=== PATIENT | female | born 1995 | race Caucasian/White ===

== ENCOUNTER 2016-05-30 18:26 | Observation (INO) | payer BC ==
[2016-05-30 18:37] VITALS: BMI 37.8
[2016-05-30 19:48] LABS: BASOPHIL 1.3 % (0-2.0); MCH 28.6 pg (25.7-33.7); MCHC 34.3 g/dl (32.0-36.0); MEAN CELL VOLUME 83.4 fl (80-96); MEAN PLT VOLUME 6.7 fl (7.5-11.1); NEUTROPHILS 60.5 % (42.8-82.8); PLATELET COUNT 251 K/MM3 (134-434); RDW 13.6 % (11.6-15.6); WHITE BLOOD COUNT 8.9 K/mm3 (4.0-10.0)
[2016-05-30] MEDS ORDERED: SODIUM CHLORIDE 1,000 ML IV STA (19:58)
[2016-05-30 20:01] LABS: INR 1.05 (0.82-1.09); PROTHROMBIN TIME (PATIENT) 11.6 SEC (9.98-11.88)
[2016-05-30 20:04] LABS: ACTIVATED PTT 32.2 SECONDS (26.9-34.4)
--- NOTE | 2016-05-30 20:05 | PDOC ---
History of Present Illness - General History Source: Patient Exam Limitations: No Limitations - History of Present Illness Initial Comments: 05/30/16 20:14 The patient is a 20 year old female with past medical history of asthma and severe depression who presents to the ED with complaints of chest pain which began around late afternoon today. The patient states that is unsure how the onset began, but qualifies the pain as a constant chest tightness.It is non- radiating. It is accompanied by a feeling of dizziness/weakness. As per mother , patient is on clozapine and has decreased her dosage within the past month. She is on cogentin and diltiazem and receives ECT as well. The mother also reports that the patient has been doing some physical activity because they are moving to a new home. The patient was advised to come to the ED by her steam distribution supervisor. [employer] Weapon System Operator: Dr. Isis Del Cid <Jenny Avina - Last Filed: 05/30/16 20:14> - General History Source: Patient Exam Limitations: No Limitations <Mark Akhtar - Last Filed: 05/30/16 21:18> - General Chief Complaint: Chest Pain Stated Complaint: CHEST PAIN Time Seen by Provider: 05/30/16 19:29 Past History <Jenny Avina - Last Filed: 05/30/16 20:14> - Past Medical History Asthma: Yes Cardiac Disorders: Yes (tachycardia) Psychiatric Problems: Yes (ashvin depression) - Psycho/Social/Smoking Cessation Hx Anxiety: No Suicidal Ideation: No Smoking History: Never smoked Have you smoked in the past 12 months: No Information on smoking cessation initiated: No Hx Alcohol Use: No Drug/Substance Use Hx: No <Mark Akhtar - Last Filed: 05/30/16 21:18> - Past Medical History Allergies/Adverse Reactions: Allergies Allergy/AdvReac Type Severity Reaction Status Date / Time Iodinated Contrast Media - Allergy Verified 05/30/16 18:32 Oral and lidocaine Allergy Verified 05/30/16 18:32 methylparaben Allergy Verified 05/30/16 18:32 mustard Allergy Verified 05/30/16 18:32 Review of Systems - Review of Systems Able to Perform ROS?: Yes Comments:: 05/30/16 20:14 GENERAL/CONSTITUTIONAL: No fever or chills. HEAD, EYES, EARS, NOSE AND THROAT: No change in vision. No ear pain or discharge. No sore throat CARDIOVASCULAR: Present: chest pain, dizziness, weakness No shortness of breath. RESPIRATORY: No cough, wheezing, or hemoptysis. GASTROINTESTINAL: No nausea, vomiting, diarrhea or constipation. GENITOURINARY: No dysuria, frequency, or change in urination. MUSCULOSKELETAL: No joint or muscle swelling or pain. No neck or back pain. SKIN: No rash NEUROLOGIC: No headache, vertigo, loss of consciousness, or change in strength/ sensation. ENDOCRINE: No increased thirst. No abnormal weight change. HEMATOLOGIC/LYMPHATIC: No anemia, easy bleeding, or history of blood clots. ALLERGIC/IMMUNOLOGIC: No hives or skin allergy. All Other Systems: Reviewed and Negative <Jenny Avina - Last Filed: 05/30/16 20:14> *Physical Exam - Vital Signs Last Vital Signs Temp Pulse Resp BP Pulse Ox 98.6 F 117 H 18 141/83 100 05/30/16 18:33 05/30/16 18:33 05/30/16 18:33 05/30/16 18:33 05/30/16 18:33 - Physical Exam Comments: 05/30/16 20:15 GENERAL: Awake, alert, and fully oriented, anxious appearing HEAD: No signs of trauma EYES: PERRLA, EOMI, sclera anicteric, conjunctiva clear ENT: Auricles normal inspection, hearing grossly normal, nares patent, oropharynx clear without exudates. Moist mucosa NECK: Normal ROM, supple, no lymphadenopathy, JVD, or masses LUNGS: Breath sounds equal, clear to auscultation bilaterally. No wheezes, and no crackles HEART: Regular rate and rhythm, normal S1 and S2, no murmurs, rubs or gallops ABDOMEN: Soft, nontender, normoactive bowel sounds. No guarding, no rebound. No masses EXTREMITIES: Normal range of motion, no edema. No clubbing or cyanosis. No cords, erythema, or tenderness NEUROLOGICAL: Cranial nerves II through XII grossly intact. Normal speech, normal gait <SergeigerJenny - Last Filed: 05/30/16 20:14> - Vital Signs Last Vital Signs Temp Pulse Resp BP Pulse Ox 98.6 F 117 H 18 141/83 100 05/30/16 18:33 05/30/16 18:33 05/30/16 18:33 05/30/16 18:33 05/30/16 18:33 <Mark Akhtar - Last Filed: 05/30/16 21:18> Heart Score/ECG Review - History History: Moderately suspicious - Electrocardiogram EKG: Normal - Age Age: </= 45 - Risk Factors Based on the list above the patient has:: No risk factors known - Troponin Troponin: </= normal limit - Score Heart Score - Total: 1 #1 ECG reviewed & interpreted by me at: 18:35 05/30/16 20:01 Sinus tachycardia 117, no std/eleazar, T wave flat III, normal axis, normal intervals, QTC 463 msec <Mark Akhtar - Last Filed: 05/30/16 21:18> ED Treatment Course - LABORATORY CBC & Chemistry Diagram: 05/30/16 19:40 05/30/16 19:40 - ADDITIONAL ORDERS Additional order review: 05/30/16 19:40 RBC 4.64 MCV 83.4 MCHC 34.3 RDW 13.6 MPV 6.7 L Neutrophils % 60.5 Lymphocytes % 25.2 Monocytes % 8.0 Eosinophils % 5.0 H Basophils % 1.3 <Jenny Avina - Last Filed: 05/30/16 20:14> - LABORATORY CBC & Chemistry Diagram: 05/30/16 19:40 05/30/16 19:40 - ADDITIONAL ORDERS Additional order review: 05/30/16 19:40 RBC 4.64 MCV 83.4 MCHC 34.3 RDW 13.6 MPV 6.7 L Neutrophils % 60.5 Lymphocytes % 25.2 Monocytes % 8.0 Eosinophils % 5.0 H Basophils % 1.3 - RADIOLOGY Radiology Studies Ordered: Category Date Time Status CHEST X-RAY PORTABLE* [RAD] Stat Radiology 05/30/16 19:29 Ordered <Mark Akhtar - Last Filed: 05/30/16 21:18> Medical Decision Making - Medical Decision Making 05/30/16 20:03 A portion of this note was documented by scribe services under my direction. I have reviewed the details of the note, within reason, and agree with the documentation with the following case summary and management plan written by me. Patient treated in the ED. Nursing notes are reviewed and incorporated into the medical decision-making. Vital signs reviewed. Peripheral IV access obtained by the nurse, laboratory studies are drawn and sent, reviewed and interpreted by myself. Vital Signs Temp Pulse Resp BP Pulse Ox 98.6 F 117 H 18 141/83 100 05/30/16 18:33 05/30/16 18:33 05/30/16 18:33 05/30/16 18:33 05/30/16 18:33 20-year-old female with history of asthma, severe depression currently on 175 mg of clozapineJerel presents to the emergency department for chest tightness. Patient reported that she was feeling somewhat tired yesterday but without focal symptoms. This afternoon, patient started feels some chest tightness and shortness of breath. There was no radiation, no nausea, no diaphoresis. Denies recent illnesses, fevers, chills, cough, vomiting. Several months ago, patient had a similar incidents where she ended up at [facility]. She was admitted with an echocardiogram, cycling of troponins and ultimately no diagnosis was made. Patient has been follow-up with Dr. Shelli Montes. The mother had contacted Dr. Mehta who requested that the patient obtain ESR, CRP, chest x-ray, labs including troponin and admission to the hospital for workup. 05/30/16 21:17 CBC, BMP 05/30/16 19:40 05/30/16 19:40 CMP Sodium 139 mmol/L (136-145) 05/30/16 19:40 Potassium 3.8 mmol/L (3.5-5.1) 05/30/16 19:40 Chloride 104 mmol/L (98-107) 05/30/16 19:40 Carbon Dioxide 27 mmol/L (21-32) 05/30/16 19:40 Anion Gap 8 (8-16) 05/30/16 19:40 BUN 11 mg/dL (7-18) 05/30/16 19:40 Creatinine 0.7 mg/dL (0.55-1.02) 05/30/16 19:40 Creat Clearance w eGFR > 60 (>60) 05/30/16 19:40 Random Glucose 100 mg/dL (74-106) 05/30/16 19:40 Calcium 8.4 mg/dL (8.5-10.1) L 05/30/16 19:40 Magnesium 2.1 mg/dL (1.8-2.4) 05/30/16 19:40 Total Bilirubin 0.3 mg/dL (0.2-1.0) 05/30/16 19:40 AST 33 U/L (15-37) 05/30/16 19:40 ALT 44 U/L (12-78) 05/30/16 19:40 Alkaline Phosphatase 132 U/L (45-117) H 05/30/16 19:40 Creatine Kinase 599 IU/L (26-192) H 05/30/16 19:40 CK-MB (CK-2) 3.793 ng/ml (0.5-3.6) H 05/30/16 19:40 Troponin I < 0.02 ng/ml (0.00-0.05) 05/30/16 19:40 C-Reactive Protein 0.4 MG/DL (0.00-0.3) H 05/30/16 19:40 Total Protein 7.4 g/dl (6.4-8.2) 05/30/16 19:40 Albumin 4.1 g/dl (3.4-5.0) 05/30/16 19:40 Urine Test Results Urine Color Ltyellow 05/30/16 19:40 Urine Appearance Clear 05/30/16 19:40 Urine pH 6.0 (5.0-8.0) 05/30/16 19:40 Ur Specific [place] 1.015 (1.001-1.035) 05/30/16 19:40 Urine Protein Negative (NEGATIVE) 05/30/16 19:40 Urine Glucose (UA) Negative (NEGATIVE) 05/30/16 19:40 Urine Ketones Negative (NEGATIVE) 05/30/16 19:40 Urine Blood Negative (NEGATIVE) 05/30/16 19:40 Urine Nitrite Negative (NEGATIVE) 05/30/16 19:40 Urine Bilirubin Negative (NEGATIVE) 05/30/16 19:40 Ur Leukocyte Esterase Negative (NEGATIVE) 05/30/16 19:40 Chest xray reviewed by me, pending official radiology read. No acute findings. HR improved to 100 with 1L of IVF. Case discussed with Dr. Dooley. She accepts the patient for tele observation. Case discussed in detail with admitting physician including history, physical exam and ancillary studies. Admitting physician has assumed care for the patient, will follow all pending diagnostics and will complete the evaluation and treatment. <Mark Akhtar - Last Filed: 05/30/16 21:18> *DC/Admit/Observation/Transfer - Attestations Scribe Attestion: 05/30/16 20:15 Documentation prepared by Jenny Avina, acting as medical physics teacher for Mark Akhtar MD. <Jenny Avina - Last Filed: 05/30/16 20:14> - Discharge Dispostion Admit: Yes <Mark Akhtar - Last Filed: 05/30/16 21:18> Diagnosis at time of Disposition: Chest pain Qualifiers: Chest pain type: unspecified Qualified Code(s): R07.9 - Chest pain, unspecified - Discharge Dispostion Condition at time of disposition: Stable - Referrals Referrals: Isis Del Cid MD [Primary Care Provider] -
[2016-05-30 20:12] LABS: ALBUMIN 4.1 g/dl (3.4-5.0); ANION GAP 8 (8-16); CALCIUM 8.4 mg/dL (8.5-10.1); CO2 27 mmol/L (21-32); CREATININE 0.7 mg/dL (0.55-1.02); GLUCOSE,RANDOM 100 mg/dL (74-106); MAGNESIUM 2.1 mg/dL (1.8-2.4); SGOT/AST 33 U/L (15-37); SGPT/ALT 44 U/L (12-78)
[2016-05-30 20:15] LABS: C-REACTIVE PROTEIN 0.4 MG/DL (0.00-0.3)
[2016-05-30 20:16] LABS: ALK PHOS 132 U/L (45-117); BILIRUBIN,TOTAL 0.3 mg/dL (0.2-1.0); TOT PROT 7.4 g/dl (6.4-8.2); TROPONIN I < 0.02 ng/ml (0.00-0.05)
[2016-05-30 20:24] LABS: URINE APPEARANCE CLEAR; URINE BILIRUBIN NEGATIVE (NEGATIVE); URINE BLOOD NEGATIVE (NEGATIVE); URINE COLOR LTYELLOW; URINE GLUCOSE (UA) NEGATIVE (NEGATIVE); URINE KETONE NEGATIVE (NEGATIVE); URINE LEUK ESTERASE NEGATIVE (NEGATIVE); URINE NITRITE NEGATIVE (NEGATIVE); URINE PROTEIN NEGATIVE (NEGATIVE); URINE UROBILINOGEN NEGATIVE E.U./dl (0.2-1.0)
[2016-05-30 20:30] LABS: SALICYLATE < 4.0 mg/dl (0.0-30.0)
[2016-05-30 20:33] LABS: URINE MARIJUANA THC NEGATIVE ng/ml (CUTOFF=50)
[2016-05-30] MEDS ORDERED: BENZTROPINE MESYLATE 1 MG TABLET (FP) PO ONE (20:49)
[2016-05-30] MEDS ORDERED: cloZAPine 25 MG TABLET PO ONE (20:49)
[2016-05-30 21:34] LABS: ERYTHROCYTE SEDIMENTATION RATE 20 mm/hr (0-20)
[2016-05-30] MEDS ORDERED: SODIUM CHLORIDE 1,000 ML IV SCH (23:15)
--- NOTE | 2016-05-30 23:29 | HP ---
<Polly Maxwell - Last Filed: 05/30/16 23:54> CHIEF COMPLAINT: Chest Pain PCP: None SLUBBER OPERATOR: Dr. Isis Del Cid. HISTORY OF PRESENT ILLNESS: The patient is a 20 yo F, mother at bedside with a PMhx of asthma who presented to the ED with sudden onset of midsternal chest pain (6/10 severity), nonradiating with associated difficulty breathing, dizziness and generalized weakness today afternoon. Reports previous similar episode in Apr 2015 where she was admitted at [place] and underwent extensive cardiac workup, echocardiogram, serial EKGs, PE was ruled out. She was diagnosed with sinus tachycardia and was started with Cardizem and reports compliance. At that time patient was evaluated by cardiology, Dr. Broderick and was discharged home. She was recommended with Holter monitor at home. The patient reports recent increase in physical activity due to process of moving. As per mother, the patient is compliant with 175 mg of clozapine however had decreased her dose in the past month. The patient was advised to visit the ED by her cardiogist. In the ED, she was found to have tachycardia of 130, was given dose of her Cardizem and during our evaluation HR was 97- 100 bpm. Recent Travel: None PAST MEDICAL HISTORY: Depression Reactive Airway Disease PAST SURGICAL HISTORY: Tonsil removal Juvenile Rectal Polyp Social History: Smoking: Denies Alcohol: Denies Drugs: Denies Family History: Hypertrophic Obstructive Cardiomyopathy Diabetes HTN CAD Allergies Iodinated Contrast Media - Oral and Allergy (Verified 05/30/16 18:32) lidocaine Allergy (Verified 05/30/16 18:32) methylparaben Allergy (Verified 05/30/16 18:32) mustard Allergy (Verified 05/30/16 18:32) HOME MEDICATIONS: Medication Instructions Recorded Benztropine Mesylate [Cogentin -] 1 mg PO HS 05/30/16 Clozapine 75 mg PO AM 05/30/16 Clozapine 100 mg PO HS 05/30/16 Diltiazem Cd [Cardizem Cd -] 120 mg PO BID 05/30/16 REVIEW OF SYSTEMS CONSTITUTIONAL: generalized weakness Absent: fever, chills, diaphoresis, malaise, loss of appetite, weight change HEENT: Absent: rhinorrhea, nasal congestion, throat pain, throat swelling, difficulty swallowing, mouth swelling, ear pain, eye pain, visual changes CARDIOVASCULAR: chest pain Absent: syncope, palpitations, irregular heart rate, lightheadedness, peripheral edema RESPIRATORY: Absent: cough, shortness of breath, dyspnea with exertion, orthopnea, wheezing, stridor, hemoptysis GASTROINTESTINAL: Absent: abdominal pain, abdominal distension, nausea, vomiting, diarrhea, constipation, melena, hematochezia GENITOURINARY: Absent: dysuria, frequency, urgency, hesitancy, hematuria, flank pain, genital pain MUSCULOSKELETAL: Absent: myalgia, arthralgia, joint swelling, back pain, neck pain SKIN: Absent: rash, itching, pallor HEMATOLOGIC/IMMUNOLOGIC: Absent: easy bleeding, easy bruising, lymphadenopathy, frequent infections ENDOCRINE: Absent: unexplained weight gain, unexplained weight loss, heat intolerance, cold intolerance NEUROLOGIC: dizziness Absent: headache, focal weakness or paresthesias, unsteady gait, seizure, mental status changes, bladder or bowel incontinence PSYCHIATRIC: Absent: anxiety, depression, suicidal or homicidal ideation, hallucinations. PHYSICAL EXAMINATION GENERAL: Awake, alert, and fully oriented, in no acute distress. HEAD: Normal with no signs of trauma. EYES: Pupils equal, round and reactive to light, extraocular movements intact, sclera anicteric, conjunctiva clear. No lid lag. EARS, NOSE, THROAT: Ears normal, nares patent, oropharynx clear without exudates. Moist mucous membranes. NECK: Normal range of motion, supple without lymphadenopathy, JVD, or masses. LUNGS: Breath sounds equal, clear to auscultation bilaterally. No wheezes, and no crackles. No accessory muscle use. HEART: Regular rate and rhythm, normal S1 and S2 without murmur, rub or gallop. ABDOMEN: Soft, nontender, not distended, normoactive bowel sounds, no guarding, no rebound, no masses. No hepatomegaly or splenomegaly. MUSCULOSKELETAL: Normal range of motion at all joints. No bony deformities or tenderness. No CVA tenderness. UPPER EXTREMITIES: 2+ pulses, warm, well-perfused. No cyanosis. No clubbing. Cap refill <2 seconds. No peripheral edema. LOWER EXTREMITIES: 2+ pulses, warm, well-perfused. No calf tenderness. No peripheral edema. NEUROLOGICAL: Cranial nerves II-XII intact. Normal speech. Normal gait. PSYCHIATRIC: Cooperative. Good eye contact. Appropriate mood and affect. SKIN: Warm, dry, normal turgor, no rashes or lesions noted. Imaging: EKG is Sinus Tachycardia with no acute ST changes. ASSESSMENT/PLAN: The patient is a 20 yo F, mother at bedside with a PMhx of asthma who presented to the ED with sudden onset of midsternal chest pain ( 6/10 severity), nonradiating with associated difficulty breathing, dizziness and generalized weakness today afternoon. 1.) Atypical chest pain associated with sinus tachycardia, no acute changes on EKG. Cardiology consult consulted by ED physician. R/o myocarditis. --Echocardiogram -Cardiac consult -Cardiac enzymes -IV Fluids -Trend CK levels -D-Dimer 2.) DVT Ppx -Ambulatory -SCDs while in bed 3.) Hx of Depression - Continue current medications Admit for Observation. Documentation prepared by Polly Maxwell, acting as medical scientific liaison for Candelario Dooley MD, <Candelario Dooley - Last Filed: 05/31/16 00:19> Visit type - Emergency Visit Emergency Visit: Yes ED Registration Date: 05/30/16 Care time: The patient presented to the Emergency Department on the above date and was hospitalized for further evaluation of their emergent condition. - New Patient This patient is new to me today: Yes Date on this admission: 05/31/16 - Critical Care Critical Care patient: No
[2016-05-31 07:40] LABS: ALBUMIN 3.4 g/dl (3.4-5.0); ANION GAP 9 (8-16); CALCIUM 8.1 mg/dL (8.5-10.1); CO2 25 mmol/L (21-32); GLUCOSE,RANDOM 90 mg/dL (74-106)
[2016-05-31 07:46] LABS: ALK PHOS 112 U/L (45-117); BILIRUBIN,TOTAL 0.4 mg/dL (0.2-1.0); CREATININE 0.6 mg/dL (0.55-1.02); SGOT/AST 28 U/L (15-37); SGPT/ALT 37 U/L (12-78); TOT PROT 5.9 g/dl (6.4-8.2); TROPONIN I < 0.02 ng/ml (0.00-0.05)
--- NOTE | 2016-05-31 09:46 | CON.CARD ---
Consult Consult Specialty:: cardio Referred by:: hospitalist Reason for Consultation:: cp, sob, dizzy - History of Present Illness Chief Complaint: same History of Present Illness: [address] morrow, saw her first time 05/06 for cp, sob on exertion, weakness, dizziness and tachycardia. pt with severe depression s/p mult prolonged hosp stays at [facility] including ECT, most recently -04/2016 and was started on clozapine there. all of the above sx's began in hospital and were felt sec to the new med, per my d/w mother (--psychiatrist). was readmitted 05/04 for these sx's, had echo and labs (incl troponins) there which were normal and showed no signs of either HCM (of which mother has a history) or myocarditis (a potential s.e. to clozapine); and w/u was neg for PE per dr roldan notes. was started on diltiazem for tachycardia control, though remained persistently tachy to 130s at home. her clozapine dose has been slowly titrated down as outpt, and when pt returned to dr roldan 05/29 she was much better, the above sx's having resolved and tachycardia much improved (HR 100s at home). cp, sob, weakness, dizzy and palpit/tachy also improved. then returned yesterday. cp is constant, mild, not localized--occurs even when at rest. denies any positional/use/pleuritic exacerbants. denies fever, rash. sob was noted few weeks ago with visible heavy breathing even at rest--this has resolved mostly. she still feels mildly sob at times, even at rest. no more heavy breathing visible to family. mom says pt memory is poor since had ECT. she has documented orthostatic hypotension (also a new problem per mother, since on the med). also the weakness appeared to be accentuated by dosing of diltiazem so was changed to bid by dr roldan as of 05/29 has borderline BPs--improved since on diltiazem - Alcohol/Substance Use Hx Alcohol Use: No - Smoking History Smoking history: Never smoked Have you smoked in the past 12 months: No Home Medications - Allergies Allergies/Adverse Reactions: Allergies Allergy/AdvReac Type Severity Reaction Status Date / Time Iodinated Contrast Media - Allergy Verified 05/30/16 18:32 Oral and lidocaine Allergy Verified 05/30/16 18:32 methylparaben Allergy Verified 05/30/16 18:32 mustard Allergy Verified 05/30/16 18:32 - Home Medications Home Medications: Ambulatory Orders Benztropine Mesylate [Cogentin -] 1 mg PO HS 05/30/16 Clozapine 75 mg PO AM 05/30/16 Clozapine 100 mg PO HS 05/30/16 Diltiazem Cd [Cardizem Cd -] 120 mg PO BID 05/30/16 Family Disease History - Family Disease History Family Disease History: Heart Disease: Mother (HCM) Review of Systems - Review of Systems Constitutional: denies: Chills, Fever Eyes: denies: Eye Pain HENT: denies: Nasal Congestion Neck: denies: Stiffness Cardiovascular: denies: Palpitations Respiratory: denies: Orthopnea, PND Gastrointestinal: denies: Diarrhea, Rectal Bleeding Genitourinary: denies: Burning, Hematuria Musculoskeletal: denies: Muscle Pain Integumentary: denies: Rash Neurological: denies: Numbness, Seizure, Syncope Endocrine: denies: Excessive Sweating Hematology/Lymphatic: denies: Excessive Bleeding Vital Signs: Vital Signs Temperature 98.6 F 05/30/16 18:33 Pulse Rate 104 H 05/31/16 03:42 Respiratory Rate 18 05/30/16 22:16 Blood Pressure 110/68 05/31/16 03:42 O2 Sat by Pulse Oximetry (%) 100 05/30/16 22:16 Constitutional: Yes: Well Nourished, No Distress, Obese Eyes: No: Sclera Icterus HENT: No: Nasal Congestion Neck: No: Decreased ROM Respiratory: Yes: CTA Bilaterally. No: Accessory Muscle Use, Rales, Wheezes Gastrointestinal: Yes: Normal Bowel Sounds. No: Distention, Hepatomegaly, Palpable Mass, Tenderness Cardiovascular: Yes: Regular Rate and Rhythm. No: Gallop, Rub JVD: No Carotid Bruit: No PMI: Non-Displaced Heart Sounds: Yes: S1, S2. No: Gallop Murmur: No: Systolic Murmur, Diastolic Murmur Musculoskeletal: Yes: Other (No kyphosis) Extremities: No: Cold, Cyanosis Edema: No Peripheral Pulses: 2+ Left Carotid, 2+ Right Carotid, 2+ Left Doralis Pedis, 2+ Right Dorsalis Pedis Integumentary: No: Jaundice Neurological: Yes: Alert, Oriented (x3) Psychiatric: No: Agitated - Other Data Labs, Other Data: CBC, BMP 05/31/16 05:30 INR, PTT INR 1.05 (0.82-1.09) 05/30/16 19:40 Troponin, BNP 05/31/16 05:30 Troponin I < 0.02 Troponin, BNP 05/31/16 05:30 Troponin I < 0.02 Laboratory Tests 05/30/16 05/30/16 05/31/16 19:40 19:40 05:30 WBC 8.9 Hgb 13.3 Plt Count 251 ESR 20 D-Dimer Sodium 142 Potassium 3.9 BUN 7 D Creatinine 0.6 AST 28 ALT 37 Creatine Kinase 599 H 366 H D Troponin I < 0.02 < 0.02 C-Reactive Protein 0.4 H 05/31/16 05:30 WBC Hgb Plt Count ESR D-Dimer 210 Sodium Potassium BUN Creatinine AST ALT Creatine Kinase Troponin I C-Reactive Protein ecg sinus tach, normal axis, no path q's, no ST-T abn Imaging - Results Chest X-ray: Report Reviewed (clear lungs/pleura; normal CMS), Image Reviewed ( agree with report) Assessment/Plan orthostatic hypotension, tachycardia, positional dizziness, weakness -none of these problems existed prior to initiating new psych med (clozapine)-- all are documented potential side effects of it -suspect she is having pronounced autonomic tone dysregulation from the med -however, she has been hospitalized for something like 9 months in the past calendar year for refractory, severe depression and this med may be one of her only remaining options (being followed by psych as outpt with dose recently decreased) -sx's initially improved in conjunction with decr dose of clozapine, now back again -tachycardia with associated palpitations is being treated with diltiazem though this seems to be aggravating generalized weakness and ? if causing BP lowering -presumably BB was deferred by inpatient cardio at that time in consultation with psych, due to concerns of aggravating mood disorder -rec NaCl tabs (1gram bid) and aggressively hydrate at least 64 oz fluids at home -intolerant of abd binder/stockings per mother -would consider initiating empiric trial of fludrocortisone, if sx's continue-- though defer to outpt f/u (mother understands instrxns) chest pain, sob -sx's atypical, at rest and constant, mild -pt and mother deny overt anxiety to explain this -sx's began when started on clozapine in outside hospital w/u there negative including echo, troponins, V/Q (per mother--reliable historian) -sx's resolved with downtitration of clozapine dose, now returned -no clinical distress, hemodynamic changes, chf, friction rub -troponins x 2, CRP and ESR remain WNL here, ECG without ST-T changes -clozapine-related myocarditis is felt to be hypersensitivity reaction, typically with rash/fever/peripheral eosinophilia, all of which are absent here- -eo.s are borderline but unimpressive and none of these other features are present -ok for outpt repeat echo next week in office, and continue to monitor for progressive rise in eo.s and/or other features developing -also no HCM on [place] echo -PE w/u for same sx's previously unrevealing, D-dimer here not elevated, satting 100% on room air -this is highly likely a nonspecific s.e. to her med and does not require further inpatient re-evaluation of this ongoing problem that is not new -advised she repeat echo in our office after the weekend, and will defer to dr roldan for possible outpt MRI to r/o small, localized myocarditis though this is clinically unlikely elevated CPK, skeletal muscle origin: -? due to muscle spasticitiy/rigidity from clozapine -no sx's of acute myopathy/myositis -trending down--observe trend as outpatient routinely if remains asymptomatic OK FOR D/C FROM CV P.O.V.
[2016-05-31 10:54] VITALS: BP 121/90; PULSE 110; TEMP 97.2
[2016-05-31] MEDS ORDERED: cloZAPine 25 MG TABLET PO SCH (11:00)
[2016-05-31] MEDS ORDERED: SODIUM CHLORIDE 1 GM TABLET PO SCH (11:15)
--- NOTE | 2016-05-31 12:17 | DS ---
Physical Examination Vital Signs: Vital Signs Temperature 97.2 F L 05/31/16 10:37 Pulse Rate 110 H 05/31/16 10:37 Respiratory Rate 20 05/31/16 10:37 Blood Pressure 121/90 05/31/16 10:37 O2 Sat by Pulse Oximetry (%) 99 05/31/16 10:37 Labs: CBC, BMP 05/31/16 05:30 Discharge Summary Reason For Visit: CHEST PAIN Current Active Problems Chest pain (Acute) Hospital Course: The patient is a 20 yo F, mother at bedside with a PMhx of asthma who presented to the ED with sudden onset of midsternal chest pain (6/10 severity), nonradiating with associated difficulty breathing, dizziness and generalized weakness today afternoon. Reports previous similar episode in Apr 2015 where she was admitted at [place] and underwent extensive cardiac workup, echocardiogram, serial EKGs, PE was ruled out. She was diagnosed with sinus tachycardia and was started with Cardizem and reports compliance. Trops x2 negative. Discussed with Dr. Mehta, will give Rx for sodium chloride tabs and compression socks and instruct the patient to follow-up cardiology within 2-3 days. Please follow-up with cardiology within 2-3 days to have your cbc rechecked for eosinophilia. Condition: Improved - Instructions Diet, Activity, Other Instructions: Please return to the ED with new, persistent, or worsening symptoms. Please follow-up with your provider as indicated. Increase oral fluid intake to at least 64 oz daily Start salt tablets 1gm daily Wear the abdominal binder and compression stockings as tolerated Please follow-up with your primary care provider within 2-3 days to have your cbc checked (eosinophilia) Referrals: Isis Del Cid MD [Primary Care Provider] - (Please follow-up with your hazmat tanker driver withni 2-3 days for an outpatient ECHO and further management of your palpitations) Disposition: HOME - Home Medications Comprehensive Discharge Medication List: Ambulatory Orders Benztropine Mesylate [Cogentin -] 1 mg PO HS 05/30/16 Clozapine 75 mg PO AM 05/30/16 Clozapine 100 mg PO HS 05/30/16 Diltiazem Cd [Cardizem Cd -] 120 mg PO BID 05/30/16 Compression Socks, Medium [Futuro Restoring] 1 each MC DAILY #1 each 05/31/16 Sodium Chloride Tablet - 1 gm PO DAILY #30 tablet 05/31/16 This patient is new to me today: Yes Date on this admission: 05/31/16 Emergency Visit: Yes ED Registration Date: 05/30/16 Care time: The patient presented to the Emergency Department on the above date and was hospitalized for further evaluation of their emergent condition. Critical Care patient: No - Discharge Referral Referred to [facility] No
[2016-05-31] MEDS ORDERED: BENZTROPINE MESYLATE 1 MG TABLET (FP) PO SCH (22:00)
[2016-05-31] MEDS ORDERED: cloZAPine 100 MG TABLET PO SCH (22:00)
--- NOTE | 2016-06-01 23:38 | EKG ---
Test Reason : Blood Pressure : / mmHG Vent. Rate : 094 BPM Atrial Rate : 094 BPM P-R Int : 132 ms QRS Dur : 092 ms QT Int : 348 ms P-R-T Axes : -15 066 051 degrees QTc Int : 435 ms NORMAL SINUS RHYTHM NORMAL ECG WHEN COMPARED WITH ECG OF 30-MAY-2016 18:33, NO SIGNIFICANT CHANGE WAS FOUND Confirmed by SARAH WOODS MD ([id number]) on 06/01/2016 11:37:49 PM Referred By: NESTOR GILMORE Confirmed By:SARAH WOODS MD
--- NOTE | 2016-06-02 12:32 | EKG ---
Test Reason : Blood Pressure : / mmHG Vent. Rate : 117 BPM Atrial Rate : 117 BPM P-R Int : 120 ms QRS Dur : 082 ms QT Int : 332 ms P-R-T Axes : 026 041 040 degrees QTc Int : 463 ms SINUS TACHYCARDIA CANNOT RULE OUT ANTERIOR INFARCT , AGE UNDETERMINED ABNORMAL ECG NO PREVIOUS ECGS AVAILABLE Confirmed by SARAH WOODS MD ([id number]) on 06/02/2016 12:32:14 PM Referred By: Confirmed By:SARAH WOODS MD
== END 2016-05-31 12:53 | disposition home or self-care (01) ==
LOC: JER 18:26 → JERBED 22:21
PROVIDERS: ADMIT Internal Medicine; ATTEND Registered Nurse
DX: R07.89 Other chest pain (principal); J45.909 Unspecified asthma, uncomplicated; F32.9 Major depressive disorder, single episode, unspecified; R00.0 Tachycardia, unspecified
CPT/HCPCS: 36415; 71010-TC; 80053; 80307; 81003; 82550; 82553; 83735; 84484; 84703; 85025; 85379; 85610; 85651; 85730; 86140; 93005; 93010; 99283-25; G0378